=== PATIENT | female | born 1955 | race Caucasian/White ===

== ENCOUNTER 2016-10-25 22:23 | Emergency (ER) | payer MEDICAID ==
--- NOTE | 2016-10-25 22:53 | ERNOTE ---
Lower Extremity HPI - General Lower Extremities Pain: leg: right - posterior, red sore area Time Seen by Provider: 10/25/16 22:42 Source: patient, family Exam Limitations: no limitations - Immun/Allergies/Home Medications Immunizations: IMMUNIZATION HX Immunizations Up to Date No History of Influenza Vaccine Yes Hx Pneumococcal Vaccination No Allergies/Adverse Reactions: Allergies Allergy/AdvReac Type Severity Reaction Status Date / Time No Known Allergies Allergy Unverified 10/25/16 22:27 Home Medications: HOME MEDICATIONS NK [No Home Medication] 10/25/16 [Last Taken Unknown] - History of Present Illness Narrative: Pt was at the dentist for a prolonged time today then noticed a sore area on her right calf. She was concerned that she might have a blood clot Occurred: this afternoon Method of Injury: Reports: unknown Modifying Factors - (Worsens): Reports: other - palpation Review of Systems - Review of Systems Constitutional: Absent: recent illness Respiratory: Absent: shortness of breath Cardiology: Absent: chest pain Musculoskeletal: Absent: muscle pain, muscle stiffness Skin: Present: See HPI - Patient's Past Medical History Patient History - Medical: No pertinent hx Patient History - Cardiac/Respiratory: No pertinent hx Patient History - Cancer: No Hx of Cancer Patient History - Surgical Procedures: Tubal Ligation Patient History - Other: None - Social History Living Situations: home Abuse History: No History of abuse Psych History: No pertinent hx Smoking Status: Former smoker Alcohol Use: none Drug Use: none - Immunizations Immunizations Up to Date: No Hx Pneumococcal Vaccination: No History of Influenza Vaccine: Yes Physical Exam - Physical Exam General Appearance: Present: wd/wn, alert, no apparent distress Head Exam: Present: normal inspection, no evidence of injury Eye Exam: Normal inspection: bilateral Neck: Present: normal inspection, supple Respiratory: Present: no respiratory distress, no accessory muscle use Extremity Exam: Present: no edema. Absent: calf tenderness Skin Exam: Present: other - 1 cm mildly erythematous, mildly indurated papule on the right posterior calf. Negative homans sign. Calves equal in circumference measurement. No pitting edema. good pulses and cap refil ED Progress - Vital Signs Vital Signs: Vital Signs 10/25/16 22:27 Temperature 36.6 C Pulse Rate 70 Respiratory 16 Rate Blood Pressure 154/68 O2 Sat by Pulse 98 Oximetry - Progress/Reassessment Chief Complaint: Lower Extremity Pain/ Injury Departure Clinical Impression: Insect bite Qualifiers: Encounter type: initial encounter Qualified Code(s): W57.XXXA - Bitten or stung by nonvenomous insect and other nonvenomous arthropods, initial encounter - Departure Disposition: Home self-care Condition: Good Instructions: Insect Bite Referrals: Queenie Rincon, [Primary Care Provider] -
[2016-10-25 22:54] VITALS: BP 140/49
== END 2016-10-25 22:57 | disposition home or self-care (01) ==
LOC: ER 22:23
DX: S80.861A Insect bite (nonvenomous), right lower leg, initial encounter (principal); W57.XXXA Bitten or stung by nonvenomous insect and other nonvenomous arthropods, initial encounter